=== PATIENT | female | born 1995 | race Caucasian/White ===

== ENCOUNTER 2021-01-11 09:21 | Emergency (ER) | payer BC, SELFPAY ==
[2021-01-11 09:26] VITALS: BP 152/91; PULSE 128; RESP 20; TEMP 36.3; O2SAT 98
[2021-01-11 10:01] LABS: Basophils Percent Auto 0.2 % (0.2-1.2); Eosinophils Absolute Auto 0.1 K/mm3 (0-0.3); Eosinophils Percent Auto 0.7 % (0-4.4); Hematocrit 41.5 % (37.0-47.0); Hemoglobin 13.7 g/dL (12.0-15.0); Immature Granulocyte Absolute 0.03 K/mm3 (0.00-0.031); Immature Granulocyte Percent A 0.3 % (0-0.5); Lymphocytes Absolute Auto 3.02 K/mm3 (0.9-3.2); Mean Corpuscular Hemoglobin 28.9 pg (26-34); Mean Corpuscular Volume 87.6 fl (80-100); Mean Platelet Volume 10.2 fl (7.4-10.4); Monocytes Absolute Auto 0.5 K/mm3 (0.1-0.6); Monocytes Percent Auto 5.3 % (2.6-8.5); Neutrophils Absolute Auto 5.8 K/mm3 (1.3-6.7); Neutrophils Percent Auto 61.5 % (45.5-73.1); Platelet Count Result 361 k/mm3 (150-375); Red Blood Count 4.74 M/mm3 (4.2-5.4); Red Cell Distribution Width 13.8 % (11.5-14.5); White Blood Count 9.4 K/mm3 (4.5-10.0)
[2021-01-11 10:09] LABS: Alanine Aminotransferase 19 U/L (4-35); Albumin Level 4.5 g/dL (3.5-5.1); Alkaline Phosphatase 60 U/L (38-126); Anion Gap 10 mmol/L (8-16); Aspartate Amino Transferase 27 U/L (14-36); Bilirubin,Total 0.2 mg/dL (0.2-1.3); Blood Urea Nitrogen 8 mg/dL (7-17); Calcium 9.2 mg/dL (8.4-10.2); Carbon Dioxide 23 mmol/L (22-30); Chloride 105 mmol/L (98-107); Estimated CRCL calculation 119 ml/min; Estimated Glomerular Filt Rate > 60; Glucose 110 mg/dL (65-105); Lipase 66 U/L (23-300); Sodium 138 mmol/L (137-145)
[2021-01-11] MEDS: HYOSCYAMINE SULFATE 0.125 MG TABLET PO (10:44)
[2021-01-11] MEDS: FAMOTIDINE 20 MG/2 ML VIAL IV PUSH (10:44)
[2021-01-11] MEDS: SODIUM CHLORIDE 0.9% IV 1,000 ML 999 ML IV CONT (10:45)
[2021-01-11 11:01] VITALS: BP 122/77; O2SAT 99
[2021-01-11 11:02] LABS: Add Urine Microscopic? YES; Appearance Urine Cloudy (Clear); Bilirubin Urine Negative (Negative); Blood Urine 1+ (Negative); Color Urine Yellow (Yellow); Glucose Urine UA Negative (Negative); Ketones Urine Trace mg/dL (Negative); Leukocyte Esterase Ur Trace LEU/UL (Negative); Mucus Urine Rare /lpf; Nitrate Urine Negative (Negative); Protein Urine 2+ mg/dL (Negative); RBC Urine 0-2 /hpf (0-2); Specific Grav Ur 1.026 (1.001-1.035); Squamous Epithelial Cell Urine Many /hpf (Few); Urobilinogen Urine Negative mg/dL (<2.0); WBC Urine 16-20 /hpf
[2021-01-11 11:16] VITALS: BP 106/80; O2SAT 100
[2021-01-11 11:28] VITALS: BP 106/80; PULSE 76; RESP 16; O2SAT 100
--- NOTE | 2021-01-11 11:30 | ED.GENADULT ---
HPI - General Adult General Chief complaint: Abdominal Pain Stated complaint: abd Time Seen by Provider: 01/11/21 10:01 Source: patient Mode of arrival: ambulatory Limitations: no limitations History of Present Illness HPI narrative: Patient is a 25-year-old female who presents to emergency department for evaluation of diarrhea that started yesterday noting multiple episodes also noting some blood in her stool patient notes cramping across the lower abdomen she gets nausea and chills when she has diarrhea denies any sick contacts or individuals with similar symptoms patient denies any past medical history and is otherwise healthy has tried some [id number] medicine with minimal improvement patient in no distress upon arrival and does not appear uncomfortable Related Data Home Medications Medication Instructions Recorded Confirmed norgestimate-ethinyl estradiol 1 tablet PO DAILY 01/11/21 01/11/21 [Estarylla] Allergies Allergy/AdvReac Type Severity Reaction Status Date / Time Penicillins Allergy Unknown Verified 01/11/21 09:28 Review of Systems Review of Systems: All systems reviewed & are unremarkable except as noted in HPI and below PMFSH Social History Social History (Updated 01/11/21 @ 11:32 by Gaetano Hager PA-C) Smoking status: Never smoker Gender identity (if verbalized by the patient): Female Exam Narrative: Exam Narrative: GENERAL: Well-appearing, well-nourished, and in no acute distress. HEAD: Normocephalic, atraumatic. EYES: PERRLA and EOMI. ENT: Nares clear, no rhinorrhea or epistaxis. Mucous membranes moist. CHEST: Clear to auscultation. No respiratory distress. No wheezes rales or rhonchi HEART: Regular rate and rhythm. No murmur heard. Normal peripheral pulses. ABDOMEN: Soft, nontender, nondistended EXTREMITIES: Normal range of motion. No edema. SKIN: Warm, dry, no rash. NEURO: No focal deficits. Alert and oriented x3. Cranial nerves II through XII grossly intact. Normal speech PSYCH: Normal mood and affect. Course Course Emergency Course: Patient evaluated for diarrhea felt appropriate for outpatient reevaluation hemodynamically stable ABCs and vital signs intact and stable patient was hydrated medicated feeling better at this time nontoxic-appearing without emesis. Patient provided with reasons to return patient is given follow-up plan with GI and primary care. Patient will be treated with medications and agrees with this plan. Patient's abdominal exam did not render any tenderness Vital Signs Vital signs: Vital Signs Temperature 97.3 F L 01/11/21 09:26 Pulse Rate 128 H 01/11/21 09:26 Respiratory Rate 20 01/11/21 09:26 Blood Pressure 152/91 H 01/11/21 09:26 Pulse Oximetry 98 01/11/21 09:26 Temperature 97.3 F L 01/11/21 09:26 Pulse Rate 76 01/11/21 11:28 Respiratory Rate 16 01/11/21 11:28 Blood Pressure 106/80 01/11/21 11:28 Pulse Oximetry 100 01/11/21 11:28 Medical Decision Making MDM Narrative Medical decision making narrative: Patient with nontender abdominal exam afebrile nontoxic-appearing likely with gastritis probably infectious versus inflammatory in nature afebrile nontoxic-appearing no distress, patient will have her urine culture given the squamous cells in a dirty sample, patient is not complaining any of urinary complaints at this time. Patient denies any URI symptoms or cardiopulmonary complaints. Patient will follow up as instructed less likely to be gallbladder pancreatic or appendicitis given the nontender exam and laboratory findings Vital Signs Vital Signs: Vital Signs Temperature 97.3 F L 01/11/21 09:26 Pulse Rate 128 H 01/11/21 09:26 Respiratory Rate 20 01/11/21 09:26 Blood Pressure 152/91 H 01/11/21 09:26 Pulse Oximetry 98 01/11/21 09:26 Temperature 97.3 F L 01/11/21 09:26 Pulse Rate 76 01/11/21 11:28 Respiratory Rate 16 01/11/21 11:28 Blood Pressure 106/80 01/11/21 11:28 Pulse Ox
== END 2021-01-11 11:40 | disposition home or self-care (01) ==
PROVIDERS: Emergency Provider Emergency Medicine; PCP Family Medicine
DX: R10.30 Lower abdominal pain, unspecified (principal)
CPT/HCPCS: 36415; 80053; 81001; 81025; 83690; 85025; 87086; 87088; 96361; 96374; 99284; A9270; J7030

== ENCOUNTER 2021-02-11 09:05 | Outpatient (CLI) | payer BC, SELFPAY ==
[2021-02-11 09:47] LABS: Cholesterol 209 mg/dL (0-200); HDL Direct 64 mg/dL; Triglycerides 197 mg/dL (<150)
[2021-02-11 10:00] LABS: LDL Cholesterol Direct 126 mg/dL
[2021-02-11 10:21] LABS: Total Triiodothyronine (T3) 1.77 NG/ML (0.97-1.69)
[2021-02-11 10:27] LABS: Free T4 Free Thyroxine 0.94 ng/mL (0.78-2.19); Vitamin D 25 Hydroxy 33.9 ng/mL
== END 2021-02-11 09:06 | disposition home or self-care (01) ==
PROVIDERS: PCP Family Medicine; Visit Provider Nurse Practitioner
DX: Z00.00 Encounter for general adult medical examination without abnormal findings (principal); Z13.220 Encounter for screening for lipoid disorders; E55.9 Vitamin D deficiency, unspecified; Z13.29 Encounter for screening for other suspected endocrine disorder
CPT/HCPCS: 36415; 80061; 82306; 84439; 84443; 84480